=== PATIENT | female | born 1985 | race Caucasian/White ===

== ENCOUNTER 2020-07-11 19:39 | Emergency (ER) | payer OTHER, MEDICAID ==
[~2020-07-11] VITALS: Ht 167.6 cm; Wt 49.9 kg
[2020-07-11 19:43] VITALS: BP_SYST 110
--- NOTE | 2020-07-11 20:01 | NUR ---
Janet HERNANDEZ talking to the pt in the waiting room.
--- NOTE | 2020-07-11 20:56 | NUR ---
Patient to ER bed 7 to gown for evaluation. Side rails up. Report given to Hermes ORTEGA.
[2020-07-11] MEDS ORDERED: ACETAMINOPHEN 500 MG TABLET PO ONE (21:15)
--- NOTE | 2020-07-11 21:15 | NUR ---
Dr. Lr bedside for pt eval
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
--- NOTE | 2020-07-11 21:58 | NUR ---
Pt taken to Radiology in stable condition
--- NOTE | 2020-07-11 22:08 | NUR ---
Pt back from Radiology, well tolerated
[2020-07-11 22:20] VITALS: BP_SYST 110
--- NOTE | 2020-07-11 22:20 | NUR ---
Patient given written and verbal discharge instructions and verbalizes understanding. ER MD discussed with patient the results and treatment provided. Patient in stable condition. ID arm band removed. Rx of Motrin given. Patient educated on pain management and to follow up with PMD. Pain Scale 0/10 Opportunity for questions provided and answered. Medication side effect fact sheet provided.
== END 2020-07-11 22:20 | disposition home or self-care (01) ==
LOC: SED 19:39
DX: S16.1XXA Strain of muscle, fascia and tendon at neck level, initial encounter (principal); F17.290 Nicotine dependence, other tobacco product, uncomplicated; V59.49XA Driver of pick-up truck or van injured in collision with other motor vehicles in traffic accident, initial encounter; Y93.89 Activity, other specified; Y92.410 Unspecified street and highway as the place of occurrence of the external cause; Y99.8 Other external cause status
CPT/HCPCS: 72040-TC; 99283